=== PATIENT | male | born 1965 | race American Indian/Alaskan Native ===

== ENCOUNTER 2017-09-10 19:17 | Emergency (ER) | payer OTHER ==
--- NOTE | 2017-09-10 19:27 | Emergency Department Report ---
HPI - General Time Seen by Provider: 09/10/17 19:19 - HPI HPI: Charge nurse triage/ The patient is a 52-year-old male presenting with a chief complaint of dysarthria and right-sided weakness. The patient states at approximately 16:00 he developed difficulty speaking. Patient was transported to the ED by EMS. Patient denies pain or weakness Location: [See above] Duration:, Constant since 16:00 Quality: [See above] Severity: [See above] Modifying factors: [see above] Context: [see above] Mode of transportation: [not driving] ED Past Medical Hx - Past Medical History Hx Hypertension: Yes (noncompliant with medication) - Surgical History Past Surgical History?: No - Family History Family history: no significant - Social History Smoking Status: Never Smoker Substance Use Type: None (denies illicit drug use) ED Review of Systems ROS: Stated complaint: POSS CVA Other details as noted in HPI Eyes: denies: eye pain ENT: denies: throat pain Cardiovascular: denies: chest pain Gastrointestinal: denies: abdominal pain Genitourinary: denies: dysuria Musculoskeletal: denies: back pain Neurological: denies: headache, weakness Physical Exam - Physical Exam Physical Exam: GENERAL: The patient is well-developed well-nourished male sitting on stretcher exhibiting dysarthria. [] HEENT: Normocephalic. Atraumatic. Extraocular motions are intact. Patient has moist mucous membranes. NECK: Supple. Trachea midline CHEST/LUNGS: There is no respiratory distress noted. HEART/CARDIOVASCULAR: Regular. There is tachycardia. ABDOMEN: Abdomen is soft, nontender. Patient has normal bowel sounds. There is no abdominal distention. SKIN: There is no rash. There is no edema. There is no diaphoresis. NEURO: The patient is awake, alert, and oriented. The patient is cooperative. Patient has mild right facial droop and exhibits dysarthria otherwise cranial nerves II through XII grossly intact. There is right pronator drift. NIHSS=5 MUSCULOSKELETAL: There is no evidence of acute injury. ED Course - Consultations Consultation #1: 09/10/17 19:37 [place] transfer line called 09/10/17 19:56 Case discussed with neurosurgeon Dr. Haile- states they're currently on diversion and do not have the capacity to accept the patient Consultation #2: 09/10/17 19:57 [facility] transfer service called 09/10/17 20:04 Informed that [facility] is on ICU saturation and is unable to accept the patient Consultation #3: 09/10/17 20:04 [facility] transfer line called 09/10/17 20:15 Case discussed with neurosurgeon Dr. Caceres-will accept patient in transfer ED Medical Decision Making - Lab Data Result diagrams: 09/10/17 19:18 09/10/17 19:18 Laboratory Tests 09/10/17 09/10/17 09/10/17 19:18 19:18 19:18 WBC 6.7 RBC 5.33 H Hgb 15.0 Hct 45.4 MCV 85 MCH 28 MCHC 33 RDW 13.5 Plt Count 163 Lymph % (Auto) 27.3 Millard % (Auto) 7.5 H Eos % (Auto) 1.0 Baso % (Auto) [employer] Lymph # 1.8 Millard # 0.5 Eos # 0.1 Baso # 0.2 H Seg Neutrophils % 61.5 Seg Neutrophils # 4.1 PT 12.6 INR 0.90 APTT 28.6 Sodium 141 Potassium 3.8 Chloride 98.8 Carbon Dioxide 26 Anion Gap 20 BUN 15 Creatinine 1.2 Estimated GFR > 60 BUN/Creatinine Ratio 13 Glucose 116 H Calcium 9.7 Total Creatine Kinase 287 H CK-MB (CK-2) 3.6 CK-MB (CK-2) Rel Index 1.2 Troponin T < 0.010 - Radiology Data Radiology results: report reviewed (CT head), image reviewed (CT head) FINAL REPORT PROCEDURE: CT HEAD/BRAIN WO CON TECHNIQUE: Computerized tomography of the head was performed without contrast material. HISTORY: dysarthria, right upper extremity weakness COMPARISON: No prior studies are available for comparison. FINDINGS: There is focal high attenuation in the left anterior thalamus, measuring up to 12 millimeters, compatible with a focus of acute hemorrhage. Minimal surrounding edema is seen. No significant mass effect. No hydrocephalus. 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 There is patchy periventricular white matter low attenuation, compatible with chronic ischemic changes. There is no evidence of intracranial mass or acute territorial infarction. The calvarium is intact. Visualized paranasal sinuses and mastoids are aerated. IMPRESSION: Small focus of acute hemorrhage in the left thalamus. Transcribed By: LW Dictated By: ROSALINDA DOSS M.D. Electronically Authenticated By: ROSALINDA DOSS M.D. Signed Date/Time: 09/10/171531 DD/ 31 TD/TT: 09/10/171531 - Differential Diagnosis CVA, ICH Critical Care Time: Yes Critical care time in (mins) excluding proc time.: 30 Critical care attestation.: If time is entered above; I have spent that time in minutes in the direct care of this critically ill patient, excluding procedure time. ED Disposition Clinical Impression: Intracranial hemorrhage, Hypertensive emergency Disposition: DC/TX-70 ANOTHER TYPE HLTHCARE Is pt being admited?: No Does the pt Need Aspirin: No Condition: Serious Instructions: Hypertension (ED) Time of Disposition: 20:15 (awaiting transport)
[2017-09-10] MEDS ORDERED: NORMODYNE IV ONE (19:33)
--- NOTE | 2017-09-10 19:35 | Cat Scan Report ---
FINAL REPORT PROCEDURE: CT HEAD/BRAIN WO CON TECHNIQUE: Computerized tomography of the head was performed without contrast material. HISTORY: dysarthria, right upper extremity weakness COMPARISON: No prior studies are available for comparison. FINDINGS: There is focal high attenuation in the left anterior thalamus, measuring up to 12 millimeters, compatible with a focus of acute hemorrhage. Minimal surrounding edema is seen. No significant mass effect. No hydrocephalus. 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 There is patchy periventricular white matter low attenuation, compatible with chronic ischemic changes. There is no evidence of intracranial mass or acute territorial infarction. The calvarium is intact. Visualized paranasal sinuses and mastoids are aerated. IMPRESSION: Small focus of acute hemorrhage in the left thalamus.
[2017-09-10 19:42] LABS: Creatine Kinase MB 3.6 ng/mL (0.0-4.0)
[2017-09-10 19:43] LABS: BUN/Creatinine Ratio 13; Blood Urea Nitrogen 15 mg/dL (9-20); Calcium 9.7 mg/dL (8.4-10.2); Hemolysis Index 10
[2017-09-10] MEDS ORDERED: CARDENE 50 MG in NACL 0.9% 250ML 230 ML IV SCH (20:00)
[2017-09-10 20:05] LABS: INR 0.9 (0.87-1.13); Partial Thromboplastin Time 28.6 Sec. (24.2-36.6)
[2017-09-10 20:24] LABS: Basophils # (Auto) 0.2 K/mm3 (0.0-0.1); Eosinophils # (Auto) 0.1 K/mm3 (0.0-0.4); Hematocrit 45.4 % (35.5-45.6); Lymphocytes # (Auto) 1.8 K/mm3 (1.2-5.4); Lymphocytes % (Auto) 27.3 % (13.4-35.0); Mean Corpuscular HGB Conc 33 % (32-34); Mean Corpuscular Hemoglobin 28 pg (28-32); Mean Corpuscular Volume 85 fl (84-94); Monocytes # (Auto) 0.5 K/mm3 (0.0-0.8); Monocytes % (Auto) 7.5 % (0.0-7.3); Platelet Count 163 K/mm3 (140-440); Red Blood Count 5.33 M/mm3 (3.65-5.03); Red Cell Distribution Width 13.5 % (13.2-15.2)
[2017-09-10 21:31] VITALS: BP 199/122
== END 2017-09-10 22:21 | disposition other institution (70) ==
LOC: ED 19:17
DX: I62.9 Nontraumatic intracranial hemorrhage, unspecified (principal); I10 Essential (primary) hypertension
CPT/HCPCS: 36415; 70450; 80048; 82550; 82553; 84484; 85025; 85610; 85730; 93005; 93010; 96365; 96367; 96375; 99291; J7050